=== PATIENT | female | born 1955 | race Asian ===

== ENCOUNTER 2018-10-29 08:27 | Observation (INO) | payer OTHER ==
[~2018-10-29 08:27] MED LIST: Buffered Lidocaine 1% SYRIN* 1 ML/SYRINGE INTRADERM ONE; Dexamethasone IV* 4 MG/ML 1 ML (4 MG) IV SLOW PU ONE; Famotidine TAB* 20 MG PO ONE; Lactated Ringers 1000 ML Bag* 1,000 ML IV SCH; Lidocaine 2.5%/Prilocain 2.5%* 5 GM TUBE ONE
[2018-10-29] MEDS ORDERED: ceFAZolin 2 GM in NS PREMIX(*) 2 GM/100 ML BAG IVPB ONE (09:04)
[2018-10-29] MEDS ORDERED: Famotidine IV* 10 MG/ML 2 ML (20 mg) ONE (10:46)
[2018-10-29] MEDS ORDERED: Dexamethasone IV* 4 MG/ML 1 ML (4 MG) ONE (10:46)
[2018-10-29] MEDS ORDERED: Famotidine TAB* 20 MG ONE (10:53)
[2018-10-29] MEDS ORDERED: Bupivacaine 0.25% SDV PF* 10 ML VIAL INJ ONE (10:55)
[2018-10-29] MEDS ORDERED: Midazolam* 1 MG/ML 2 ML VIAL (2 MG) ONE (11:07)
[2018-10-29] MEDS ORDERED: fentaNYL* 50 MCG/ML 5 ML VIAL (250 MCG VIAL) ONE (11:07)
[2018-10-29] MEDS ORDERED: oxyCODONE/Acetamin 5/325 MG* TAB PO PRN ×2 (12:24→14:24)
[2018-10-29] MEDS ORDERED: Acetaminophen TAB* 325 MG PO PRN ×2 (12:24→14:24)
[2018-10-29] MEDS ORDERED: Naloxone* 0.4 MG/ML 1 ML VIAL IV PRN (12:24)
[2018-10-29] MEDS ORDERED: fentaNYL* 50 MCG/ML 2 ML VIAL (100 MCG VIAL) IV PRN (12:24)
[2018-10-29] MEDS ORDERED: Ketorolac INJ* 30 MG/ML 1 ML VIAL IV PRN (12:24)
[2018-10-29] MEDS ORDERED: DiMENhydriNATE IV* 50 MG/ML VIAL IV PUSH PRN (12:24)
[2018-10-29] MEDS ORDERED: Lidocaine 2% PF * 5 ML VIAL ONE (13:40)
[2018-10-29] MEDS ORDERED: Propofol* 10 MG/ML 20 ML BTL ONE (13:40)
[2018-10-29] MEDS ORDERED: Ondansetron INJ* 2 MG/ML VIAL ONE (13:49)
[2018-10-29] MEDS ORDERED: Ondansetron INJ* 2 MG/ML VIAL IV PRN (14:24)
[2018-10-29] MEDS ORDERED: HYDROmorphone INJ1* 1 MG/ML SYRINGE IV SLOW PU PRN (14:24)
[2018-10-29] MEDS ORDERED: Acetaminophen IV 1GM/100ML * 100 ML ONE (14:49)
[2018-10-29] MEDS ORDERED: Lactated Ringers 1000 ML Bag* 1,000 ML IV SCH (15:00)
--- NOTE | 2018-10-29 16:24 | OP ---
DATE OF OPERATION: 10/29/18 - ROOM #333 DATE OF : 57 SERVICE: General Surgery. ATTENDING SURGEON: Savanah Valencia MD. SURVIVAL EQUIPMENT REPAIRER: Ana Zaman MD. ANESTHESIOLOGIST: Dr. Misha Joyce. ANESTHESIA: General endotracheal anesthesia. PREP-OP DIAGNOSIS: Left breast cancer. POST-OP DIAGNOSIS: Left breast cancer. OPERATIVE PROCEDURE: Left simple mastectomy and sentinel lymph node biopsy. SPECIMEN: Left breast and sentinel lymph node. ESTIMATED BLOOD LOSS: Minimal, less than 10 cc. INDICATION FOR SURGERY: Ms. Churchill is a 63-year-old female with a history of hypothyroidism, who was found to have a left breast mass, and during workup for this left breast mass was found to have left breast cancer. Given the mass to breast ratio and the fact that she also had nipple inversion, the patient elected to undergo simple mastectomy, and she also declined immediate reconstruction. She gave informed consent for left breast simple mastectomy and a sentinel lymph node biopsy. She understood the risks, benefits, and alternatives of the procedure and she wished to proceed. DESCRIPTION OF PROCEDURE: The patient was brought back to the operating room and placed on the operating table in the supine position. Sequential compression devices were placed in the bilateral lower extremities for DVT prophylaxis. Antibiotics were administered prior to the incision. The patient' s left breast and axilla were prepped and draped in normal sterile fashion. Prior to the procedure, a time-out was performed verifying the patient's name, MR number, and the procedure to be performed as well as laterality, which was on the left side. Next, an elliptical incision was made in the mid breast to encompass the areola and nipple complex. The skin was divided on the upper aspect of the elliptical. The skin was divided down to the subcutaneous tissue and then the superior breast flap was developed. Care was taken to ensure that the flap was neither too thin nor too thick, and the flap was carried all the way superiorly towards the clavicle and medially towards the sternum and laterally towards the latissimus. Next, the inferior flap was developed. Skin was divided down to subcutaneous tissue and then the inferior flap was elevated inferiorly towards the inframammary fold and again medially towards the lateral border of the sternum, and laterally towards the latissimus. Once these borders were developed, attention was turned towards elevating the breast tissue off of the pectoralis muscle and including the fascia. Once the breast was completely removed off of the pectoralis, it was examined carefully. The axillary tail was also included in the specimen, and prior to removing the entire specimen from the breast cavity, the sentinel lymph node biopsy was performed. The [place]essa counter was placed into the axilla, the axillary tissue, and two sentinel lymph nodes were identified. The first sentinel lymph node count was approximately 1000 as an in vivo count and then the ex vivo count of the sentinel lymph node was approximately 800. One sentinel lymph node had been identified on the lymphoscintigraphy and the [place] counter did not pickup any other counts in the axilla, therefore the axillary bed count was less than 10. At this point, the specimen was entirely removed from the breast cavity and stitches were used to orient the specimen. The short suture was placed at the superior margin, medium length suture was placed at the medial margin, and long suture was placed at the lateral margin. The two specimens which were the left breast and the sentinel lymph node were both carried off as specimen. Next , attention was turned towards obtaining hemostasis in the breast cavity. Once hemostasis was obtained, irrigation was performed using sterile water. At this point, once hemostasis was satisfactorily obtained, a 10 GYPSY drain was placed through the inferior breast flap in overlay at the pectoralis muscle. It was secured to the skin using a Prolene suture. Next, the breast excision was closed using interrupted 3-0 Vicryl sutures in the subdermal layer and using a running 4-0 Monocryl suture for the skin. Sterile dressing was then placed and then puffs and Quentin bandage were used to place around the breast for compression and the GYPSY drain was connected to bulb suction after infiltrating lidocaine through the tubing. At this point, the patient's anesthesia was reversed and she was taken to the PACU in stable condition. At the end of the case, all counts were correct and I was present during the entirety of the case. [id number]/[facility] #: [id number] SURY
[2018-10-30] MEDS ORDERED: Levothyroxine TAB* 75 MCG TAB PO SCH (06:00)
[2018-10-30 07:27] VITALS: BP 118/69
--- NOTE | 2018-10-30 07:56 | PN ---
Progress Note - Progress Note Date of Service: 10/30/18 Note: Surgery Ms. Churchill reports no problems overnight. She denies pain. Vital Signs - 12 hr Temp Pulse Resp BP Pulse Ox 10/30/18 07:26 97.5 F 61 16 118/69 98 10/30/18 07:08 16 10/30/18 03:21 97.6 F 57 16 124/69 100 10/30/18 01:00 18 10/29/18 23:22 97.7 F 55 16 118/67 100 10/29/18 22:55 18 10/29/18 21:55 97.8 F 59 16 115/65 100 Incision: clean and dry; flaps viable GYPSY: serosanguinous fluid Intake & Output 10/29/18 10/30/18 10/30/18 22:59 06:59 14:59 Intake Total 640 0 Output Total 350 530 300 Balance 290 -530 -300 Intake: IV Fluids 400 lr 400 Oral 240 0 Output: GYPSY #1 50 30 Urine 300 500 300 Other: Estimated Void Large # Bowel Movements 0 A/P: POD#1 s/p left mastectomy and SLN bx. Doing well. Can go home once comfortable with GYPSY drain management.
[2018-10-30] MEDS ORDERED: Atorvastatin* 20 MG TAB PO SCH (09:00)
--- NOTE | 2018-10-30 09:23 | DS ---
CC: Dr. Kim Rdz * DISCHARGE SUMMARY: DATE OF ADMISSION: 10/29/18 DATE OF DISCHARGE: 10/30/18 ADMISSION DIAGNOSIS: Left breast cancer. DISCHARGE DIAGNOSIS: Left breast cancer. PROCEDURES DURING HOSPITALIZATION: Included left mastectomy done on the date of admission. HOSPITAL COURSE: Please see admission history and physical for details and findings at the time of admission. Ms. Churchill was admitted after having undergone left mastectomy and sentinel lymph node biopsy. Overnight, she did well and denied any problem. On the morning of discharge, she was stable and considered ready for discharge. She will follow up as an outpatient. [id number]/[facility] #: [id number] MTDD
== END 2018-10-30 10:00 | disposition home or self-care (01) ==
LOC: OR 08:27 → SSU 14:24
PROVIDERS: ADMIT Surgery; ATTEND Surgery
DX: C50.912 Malignant neoplasm of unspecified site of left female breast (principal); E03.9 Hypothyroidism, unspecified; E78.5 Hyperlipidemia, unspecified
CPT/HCPCS: 78195; 96361; 96374; A9270-GY; A9541; G0378; J0690; J1100; J1170; J2250; J2405; J2704; J3010; J3490

== ENCOUNTER 2019-05-31 07:43 | Day surgery (SDC) | payer OTHER ==
[2019-05-31] MEDS ORDERED: Midazolam* 1 MG/ML 2 ML VIAL (2 MG) ONE ×2 (08:54→09:24)
[2019-05-31 10:05] VITALS: BP 130/76
--- NOTE | 2019-05-31 11:22 | OP ---
DATE OF OPERATION/DATE OF DICTATION: 05/31/2019 - MERGED WITH [facility] DATE OF : 1955. SURGEON: Dr. Wil Galindo. CUSTOMER ACCOUNTS ADVISOR: None. ANESTHESIA: Topical with intravenous sedation. PRE-OP DIAGNOSIS: Cataract, right eye. POST-OP DIAGNOSIS: Cataract, right eye. OPERATIVE PROCEDURE: Phacoemulsification and cataract extraction with posterior chamber intraocular lens implant, right eye. COMPLICATIONS: None. BLOOD LOSS: None. DESCRIPTION OF PROCEDURE: The patient was brought to the operating room and received a small amount of intravenous sedation. A drop of Tetracaine was placed in her right eye. She was prepped and draped in the usual sterile fashion for ophthalmic surgery and attention was directed to the right eye where a speculum was placed. A paracentesis was created at the 11 o'clock position and 0.1 cc of 1 percent preservative-free Lidocaine was injected into the anterior chamber followed by DisCoVisc. The eye was digitally stabilized while a 2.75 mm keratome was used to create a triplanar clear corneal incision at the 9 o'clock position. A continuous curvilinear capsulorrhexis was created with a cystotome and Utrata forceps. BSS on a cannula was used to hydrodissect the lens from the capsule. Phacoemulsification was performed in a divide-and- conquer technique to create four fragments which were removed. Residual cortical material was removed with irrigation and aspiration. DisCoVisc was used to inflate the capsular bag and an AUOOTO 23.5 diopter lens was folded and inserted into the capsular bag. DisCoVisc was removed using irrigation and aspiration. BSS on a cannula was used to hydrate the corneal stroma and seal the wound. At the end of the case the pupil was round and the lens was centered. The eye was of normal pressure and the wound was water tight. The speculum was removed and topical Maxitrol ointment was placed on the surface of the eye. The eye was closed, patched and shielded and the patient was sent to the recovery room in stable condition with post operative instructions and follow-up appointment given. [id number]/[facility] #: [id number] MTDD
[2019-05-31] MEDS ORDERED: Tropicamide 1% OPTH.SOL* BTL ONE (14:33)
[2019-05-31] MEDS ORDERED: Phenylephrine OPHTH SOL 2.5%* 2 ML ONE (14:33)
[2019-05-31] MEDS ORDERED: Neomycin/Polymy/Dex OPHTH.OIN* 3.5 GM ONE (14:33)
[2019-05-31] MEDS ORDERED: Tetracaine 0.5% OPTH.SOL 4 ML* 1 DROP BTL ONE (14:33)
[2019-05-31] MEDS ORDERED: Ketorolac 0.5% OPHTH (NF) 0.5 % 5 ML BTL ONE (14:33)
[2019-05-31] MEDS ORDERED: Cyclopentolate 1% OPTH.SOL* 2 ML BTL ONE (14:33)
[2019-05-31] MEDS ORDERED: Lidocaine 1% MPF ** 5 ML VIAL ONE (14:33)
== END 2019-05-31 10:00 | disposition home or self-care (01) ==
LOC: OREAST 07:43
PROVIDERS: ATTEND Ophthalmology
DX: H25.11 Age-related nuclear cataract, right eye (principal); E03.9 Hypothyroidism, unspecified; Z85.3 Personal history of malignant neoplasm of breast
CPT/HCPCS: A9270-GY; J2250; V2632